=== PATIENT | female | born 1990 | race Caucasian/White ===

== ENCOUNTER 2020-06-07 16:04 | Emergency (ER) | payer OTHER, SELFPAY ==
[2020-06-07 16:05] VITALS: BP 148/93; PULSE 101; RESP 18; TEMP 36.3; O2SAT 97; BMI 24.7
[2020-06-07 16:10] VITALS: BP 148/93; PULSE 86; RESP 20; O2SAT 97
--- NOTE | 2020-06-07 16:26 | XR_ITS ---
WS: [id number] XR hand RT min 3V* [id number] REASON FOR EXAM: crush injury to right hand FINDINGS: Joint spaces of the right hand are well preserved. There are nondisplaced fractures of the johanna of the distal phalanges of the right third and fourth f ingers. No radiopaque point foreign-body identified. XR/XR hand RT min 3V* [id number] IMPRESSION: Fractures of the right third and fourth fingers as above.
--- NOTE | 2020-06-07 16:27 | W.ED.EXTPRO ---
HPI - Extremity Problem General: Chief complaint: Extremity Injury, Upper Stated complaint: r arm injury Time Seen by Provider: 06/07/20 16:26 History of Present Illness: HPI Narrative: Patient is a 30-year-old female comes to the ED with an injury to right hand. Patient says she was pointing out metal ramps from a moving truck and did not realize that they completely unhooked from truck. They were a approximately 50 to 80 pounds and when they came unhooked it pulled her down to the ground and smashed her fingers between the ramp and pavement. Patient's third and fourth digit on right hand are in pain and have some blood blisters present and minimal bleeding under nailbed. Patient rates pain a 10 out of 10. Associated symptoms: Deny chest pain, fever(s) or rash Review of Systems Const: Denies: fever(s), chills or fatigue Eyes: Denies: change in vision or eye discomfort ENMT: Denies: throat pain, odynophagia, nasal discharge or nasal congestion Card: Denies: chest pain, palpitations, edema, swelling of feet/ankles, dyspnea on exertion or orthopnea Resp: Denies: dyspnea, productive cough or non-productive cough GI: Denies: abdominal pain, nausea, vomiting, diarrhea, constipation or hematochezia : Denies: flank pain, dysuria or hematuria Musc: Reports: extremity pain (right hand-3rd and 4th digit) and extremity swelling (3rd and 4th digit right hand); Denies: neck pain or back pain Skin/Breast: Denies: rash or new lesions Neuro: Denies: headache(s), numbness in extremities or weakness in extremities Physical Exam Const: COMMON NORMALS: patient oriented x3 and alert GENERAL APPEARANCE: cooperative and comfortable HENMT: COMMON NORMALS: normocephalic HEAD & SCALP: normocephalic MOUTH: Normal oral and palatal mucosa present THROAT: posterior oropharynx normal and uvula midline Neck/C-Spine: COMMON NORMALS: supple GENERAL: Yes normal visual inspection Resp: COMMON NORMALS: normal respiratory effort, No retractions, No use of accessory muscles and clear to auscultation bilaterally AUSCULTATION: clear to auscultation bilaterally Cardio: COMMON NORMALS: regular rate, regular rhythm, S1 normal heart sound present, S2 normal heart sound present, No gallops present (Cardio), No clicks present (Cardio), No murmurs present (Cardio) and Peripheral pulses 2+ throughout RATE: regular rate RHYTHM: regular rhythm HEART SOUNDS: S1 normal heart sound present and S2 normal heart sound present PERIPHERAL PULSES: Peripheral pulses 2+ throughout GI: COMMON NORMALS: Normal to inspection, nondistended, normoactive bowel sounds present, Soft to palpation, non-tender and no masses PALPATION: Yes Soft to palpation : COMMON NORMALS: Yes no CVA tenderness BLADDER/KIDNEY EXAM: Yes no CVA tenderness Back/Pelvis: COMMON NORMALS: no CVA tenderness Extremity: NARRATIVE EXTREMITY EXAM: right hand- 3rd and fourth digit has ecchymosis and edema from DIP joint to tip of finger. Mild bleeding underneath both nails. No lacerations or deformity seen. GENERAL: Yes normal exam except as noted Neuro: COMMON NORMALS: patient oriented x3 and moves all extremities SENSORIUM/ORIENTATION: Yes alert Skin: GENERAL SKIN EXAM: dry skin Course Vital Signs: Vital signs: Vital Signs Temperature 98.7 F 06/07/20 17:54 Pulse Rate 83 06/07/20 17:54 Respiratory Rate 18 06/07/20 17:54 Blood Pressure 134/70 06/07/20 17:54 Pulse Oximetry 96 06/07/20 17:54 MDM - Extremity (Nontraumatic) MDM Narrative: Medical decision making narrative: Patient is a 30-year-old female comes to the ED with injury to third and fourth digit of right hand. Right hand x-ray shows distal nondisplaced tuft fracture of third and fourth digit. Patient sent home with a prescription of Augmentin as prophylactic antibiotic treatment and written prescription of 8 hydrocodone tabs for pain. Both fingers on right hand report and finger splints. She was told to follow-up with her PCP in 7 to 10 days for reevaluation. Patient understood and agreed with plan return to ED precautions given. Imaging Data^: Xray Ortho: Attestation: I personally reviewed and interpreted this imaging study as follows: My impression: Right hand [id number] nondisplaced tuft fracture of third and fourth digit. Discharge Plan Discharge Patient Disposition: Home Clinical Impression: Open fracture of tuft of distal phalanx of finger Condition: Stable Prescriptions: New Augmentin 500-125 mg tablet 1 tab PO BID 5 Days Qty: 10 RF: 0 Discharge Orders: Discharge Order (Routine); Ordered 06/07/20 Ordered By: Derian Joyce Discharge Diet: Regular Discharge Activity: Limit activity as instructed Patient Instructions: Fractures - Phalanx (Finger) Activity Restrictions/Additional Instructions: Follow-up with medical provider as directed in 7 to 10 days. Take medications as prescribed. Limit use of right hand and wear finger splint to allow for healing. Return to the ER or your medical provider if condition worsens. Please read and understand discharge instructions. If any questions, please ask. 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
[2020-06-07 16:33] VITALS: PULSE 90
[2020-06-07] MEDS: HYDROcodone-acetaminophen 7.5-325 mg Tablet 1 TAB PO (16:44)
[2020-06-07] MEDS: tetanus-diphtheria tox (adult) 0.5 mL SDV IM (16:45)
[2020-06-07] MEDS: amoxicillin-clav 500-125 mg Tablet 1 TAB PO (17:03)
--- NOTE | 2020-06-07 17:53 | PC.NURSE ---
Use a pedi arm board to splint two middle finger , in a Gray Type splint
[2020-06-07 17:54] VITALS: BP 134/70; PULSE 83; RESP 18; TEMP 37.1; O2SAT 96
== END 2020-06-07 18:00 | disposition home or self-care (01) ==
PROVIDERS: Emergency Provider Physician Assistant
DX: S62.662B Nondisplaced fracture of distal phalanx of right middle finger, initial encounter for open fracture (principal); S62.664B Nondisplaced fracture of distal phalanx of right ring finger, initial encounter for open fracture; W23.0XXA Caught, crushed, jammed, or pinched between moving objects, initial encounter; Z23 Encounter for immunization
CPT/HCPCS: 12345; 73130; 90471; 90714; 99281; 99283